=== PATIENT | female | born 1970 | race Caucasian/White ===

== ENCOUNTER → 2024-08-15 | Outpatient (CLI) | payer OTHER, SELFPAY ==
--- NOTE | 2024-08-15 10:18 | VDLE_ITS ---
Reason For Study: HX RLE DVT / RLE Pain RIGHT LEFT GSV is normal. FV is compressible, spontaneous, phasic, CFV is compressible, spontaneous, phasic, competent and demonstrates normal competent and demonstrates normal augmentation. augmentation. FV is compressible, spontaneous, phasic, competent and demonstrates normal augmentation. POP V is compressible, spontaneous, phasic, competent and demonstrates normal augmentation. T/P Trunk is compressible. PTV is compressible. RT PerV is compressible. Soleus Vein is compressible Gastrocnemius Vein is PARTIALLY COMPRESSIBLE with intraluminal echoes. Procedure This is a venous duplex using B-mode, color flow and spectral Doppler. Exam performed in department. The exam was diagnostic. A preliminary report was called and/or faxed to [facility]. VL/Venous Duplex US, Unilateral Interpretation Summary Chronic deep vein thrombosis is noted in the right gastrocnemius vein. Ordering Physician: Sandy Taylor Referring Physician: Dereck Jolly Performed By: Nahid Bentley RVT
[2024-08-15 11:13] LABS: International Normalized Ratio 1.9; Prothrombin Time (Protime)PT. 21.8 SECONDS (11.7-14.9)
== END | disposition home or self-care (01) ==
PROVIDERS: PCP Family Medicine; Referring Provider Physician Assistant; Visit Provider Physician Assistant
DX: I82.561 Chronic embolism and thrombosis of right calf muscular vein (principal); Z79.01 Long term (current) use of anticoagulants
CPT/HCPCS: 36415; 85610; 93971